=== PATIENT | female | born 1940 | race African-American/Black ===

== ENCOUNTER 2018-07-02 09:53 | Inpatient (IN) | payer OTHER ==
[~2018-07-02] VITALS: Ht 165.1 cm; Wt 104.4 kg
[2018-07-02 10:07] VITALS: Ht 165.1 cm; Wt 104.4 kg
[2018-07-02 11:16] LABS: BASOPHIL % 0.6 % (0-2); PLATELET COUNT 101 x10^3mcL (130-400)
[2018-07-02 11:41] LABS: ALKALINE PHOSPHATASE 102 U/L (46-116); ALT/SGPT 22 U/L (14-59); AST/SGOT 24 U/L (15-37); BILIRUBIN TOTAL 0.5 mg/dL (0.20-1.00); CALCIUM 8.8 mg/dL (8.5-10.1); CARBON DIOXIDE 29.1 mmol/L (21-32); CHLORIDE SERUM 106 mmol/L (98-107); GLUCOSE SERUM 87 mg/dL (74-106); POTASSIUM SERUM 4.9 mmol/L (3.5-5.1); SODIUM SERUM 142 mmol/L (136-145); TOTAL PROTEIN, SERUM 7.2 g/dL (6.4-8.2)
[2018-07-02 11:44] LABS: ALBUMIN 3.3 g/dL (3.4-5.0)
[2018-07-02 11:49] LABS: CREATININE SERUM 1.2 mg/dL (0.6-1.0)
[2018-07-02] MEDS ORDERED: LISINOPRIL10 MG PO (13:05)
[2018-07-02] MEDS ORDERED: ROSUVASTATIN CAL5 MG (13:05)
[2018-07-02 14:25] LABS: MAGNESIUM 2.5 mg/dL (1.8-2.4); PHOSPHOROUS 3.6 mg/dL (2.5-4.9)
[2018-07-02 15:19] VITALS: BP 161/65
[2018-07-02 17:37] VITALS: BP 142/63
[2018-07-02 19:44] LABS: microscopic required? NO
[2018-07-02 20:37] LABS: urine erythrocyte NEGATIVE (NEGATIVE)
[2018-07-02 21:29] VITALS: BP 133/94
[2018-07-03 06:22] VITALS: BP 148/71
[2018-07-03 06:31] LABS: BASOPHIL % 0.4 % (0-2)
[2018-07-03 06:41] LABS: CALCIUM 8.4 mg/dL (8.5-10.1); CARBON DIOXIDE 28.1 mmol/L (21-32); CHLORIDE SERUM 107 mmol/L (98-107); CREATININE SERUM 1.2 mg/dL (0.6-1.0); GLUCOSE SERUM 87 mg/dL (74-106); MAGNESIUM 2.1 mg/dL (1.8-2.4); PHOSPHOROUS 4.4 mg/dL (2.5-4.9); POTASSIUM SERUM 4.9 mmol/L (3.5-5.1); SODIUM SERUM 140 mmol/L (136-145)
[2018-07-03 07:09] LABS: PLATELET COUNT 93 x10^3mcL (130-400)
[2018-07-03 08:32] VITALS: BP 149/64
[2018-07-03 12:06] VITALS: BP 148/72
[2018-07-03 16:06] VITALS: BP 116/65
[2018-07-03 20:37] VITALS: BP 151/67
[2018-07-04 06:06] VITALS: BP 141/67
[2018-07-04 06:20] LABS: BASOPHIL % 0.2 % (0-2); RED CELL DISTRIBUTION WIDTH 13.9 % (11.5-14.5)
[2018-07-04 06:30] LABS: CALCIUM 8.3 mg/dL (8.5-10.1); CARBON DIOXIDE 27.8 mmol/L (21-32); CHLORIDE SERUM 110 mmol/L (98-107); CREATININE SERUM 1.1 mg/dL (0.6-1.0); GLUCOSE SERUM 81 mg/dL (74-106); MAGNESIUM 2.2 mg/dL (1.8-2.4); POTASSIUM SERUM 4.2 mmol/L (3.5-5.1); SODIUM SERUM 144 mmol/L (136-145)
[2018-07-04 06:45] LABS: PLATELET COUNT 94 x10^3mcL (130-400)
[2018-07-04 09:25] VITALS: BP 151/79
[2018-07-04] MEDS ORDERED: NOR5 PO (10:18)
[2018-07-04 13:48] VITALS: BP 119/41
[2018-07-04 16:13] VITALS: BP 119/41
== END 2018-07-04 18:11 | disposition home or self-care (01) | DRG 305 ==
LOC: ED 09:53 → DU 13:45
PROVIDERS: Emergency Medicine; ADMIT Family Medicine
DX: I16.0 Hypertensive urgency (principal); E44.1 Mild protein-calorie malnutrition; E83.41 Hypermagnesemia; D69.6 Thrombocytopenia, unspecified; R73.03 Prediabetes; E78.5 Hyperlipidemia, unspecified; Z68.38 Body mass index [BMI] 38.0-38.9, adult
CPT/HCPCS: J7030; J8597; Q0092

== ENCOUNTER 2019-04-18 07:54 | Emergency (ER) | payer OTHER ==
[~2019-04-18] VITALS: Ht 170.2 cm; Wt 102.5 kg
[~2019-04-18 07:54] MED LIST: LISINOPRIL10 MG PO; NOR5 PO; ROSUVASTATIN CAL5 MG
[2019-04-18 08:17] VITALS: Ht 170.2 cm; Wt 102.5 kg
[2019-04-18 11:41] VITALS: BP 152/91
== END 2019-04-18 11:41 | disposition home or self-care (01) ==
LOC: ED 07:54
DX: M25.512 Pain in left shoulder (principal); M25.511 Pain in right shoulder; I10 Essential (primary) hypertension
CPT/HCPCS: Q0092